=== PATIENT | male | born 1970 | race Caucasian/White ===

== ENCOUNTER 2018-07-14 09:32 | Emergency (ER) | payer OTHER ==
--- NOTE | 2018-07-14 10:46 | ER ---
Nurse's Notes [facility] Name: Jhony Clements Age: 48 yrs Sex: Male : 1970 Arrival Date: 07/14/2018 Time: 09:36 Bed 19 Private MD: None, None Diagnosis: Type 2 diabetes mellitus;Essential (primary) hypertension Presentation: 07/14 09:40 Presenting complaint: Patient states: "my left hand has been numb since last week and aa5 now my right hand is doing the same thing". Pt reports hx of HTN and diabetes, pt states "I took myself off the my medicines years ago but I think I need them now". 09:40 Onset of symptoms was June 2018. aa5 09:40 Acuity: LISA 3 aa5 09:40 Transition of care: patient was not received from another setting of care. aa5 09:40 Method Of Arrival: Ambulatory aa5 09:46 Risk Assessment: Do you want to hurt yourself or someone else? Patient reports no hj desire to harm self or others. Initial Sepsis Screen: Does the patient meet any 2 criteria? No. Patient's initial sepsis screen is negative. Does the patient have a suspected source of infection? No. Patient's initial sepsis screen is negative. Care prior to arrival: None. Triage Assessment: 09:45 General: Appears in no apparent distress. uncomfortable, Behavior is calm, cooperative, hj appropriate for age. Pain: Denies pain. Historical: - Allergies: 09:40 No Known Allergies; aa5 - PMHx: 09:40 Hypertension; Diabetes - NIDDM; aa5 - PSHx: 09:40 None; aa5 - Immunization history:: Adult Immunizations unknown. - Social history:: Smoking status: Smoking status: Patient/guardian denies using tobacco, Patient/guardian denies using alcohol. - Ebola Screening: : Patient negative for fever greater than or equal to 101.5 degrees Fahrenheit, and additional compatible Ebola Virus Disease symptoms Patient denies exposure to infectious person Patient denies travel to an Ebola-affected area in the 21 days before illness onset. - Family history:: not pertinent. Screenin:45 Abuse screen: Denies threats or abuse. Denies injuries from another. Nutritional hj screening: No deficits noted. Tuberculosis screening: No symptoms or risk factors identified. Fall Risk None identified. Assessment: 09:40 General: Appears in no apparent distress. uncomfortable, Behavior is calm, cooperative, hj appropriate for age. Pain: Denies pain. Neuro: Level of Consciousness is awake, alert, obeys commands, Oriented to person, place, time, situation, Appropriate for age. Cardiovascular: Capillary refill < 3 seconds Patient's skin is warm and dry. Respiratory: Airway is patent Respiratory effort is even, unlabored, Respiratory pattern is regular, symmetrical. GI: No signs and/or symptoms were reported involving the gastrointestinal system. : No signs and/or symptoms were reported regarding the genitourinary system. EENT: No signs and/or symptoms were reported regarding the EENT system. Derm: No signs and/or symptoms reported regarding the dermatologic system. Musculoskeletal: Reports numbness in palmar aspect of proximal phalanx of right little finger and palmar aspect of middle phalanx of right little finger and palmar aspect of distal phalanx of right little finger and dorsal aspect of proximal phalanx of right little finger and dorsal aspect of middle phalanx of right little finger and dorsal aspect of distal phalanx of right little finger and left hand. 10:00 Reassessment: Patient and/or family updated on plan of care and expected duration. Pain hj level reassessed. Patient is alert, oriented x 3, equal unlabored respirations, skin warm/dry/pink. awaiting provider'. 11:05 Reassessment: Patient and/or family updated on plan of care and expected duration. Pain hj level reassessed. Patient is alert, oriented x 3, equal unlabored respirations, skin warm/dry/pink. Patient states feeling better. Vital Signs: 09:42 BP 150 / 102; Pulse 103; Resp 18 S; Temp 98.2(O); Pulse Ox 96% on R/A; Weight 108.86 kg aa5 (R); Height 5 ft. 7 in. (170.18 cm) (R); Pain 0/10; 11:04 BP 153 / 99; Pulse 85; Resp 18; Pulse Ox 97% on R/A; hj 09:42 Body Mass Index 37.59 (108.86 kg, 170.18 cm) aa5 ED Course: 09:36 Patient arrived in ED. mr 09:36 None, None is Private Physician. mr 09:40 Arm band placed on Patient placed in an exam room, on a stretcher. aa5 09:41 Aldo Fry, RN is Primary Nurse. hj 09:45 Arm band placed on right wrist. hj 09:46 Adam Easley MD is Attending Physician. mindi 09:47 Triage completed. aa5 09:47 Patient has correct armband on for positive identification. Bed in low position. Call hj light in reach. Side rails up X 1. 10:42 Manuel Humphries MD is Referral Physician. mindi 10:54 Ted Mueller MD is Referral Physician. mindi 11:03 No provider procedures requiring assistance completed. Patient did not have IV access hj during this emergency room visit. Administered Medications: 10:40 Drug: Motrin 600 mg Route: PO; hj 11:06 Follow up: Response: No adverse reaction; Pain is decreased hj 10:40 Drug: metFORMIN 1000 mg Route: PO; hj 11:06 Follow up: Response: No adverse reaction hj 10:41 Drug: Lisinopril 10 mg Route: PO; hj 11:06 Follow up: Response: No adverse reaction hj Point of Care Testing: Blood Glucose: 10:31 Blood Glucose: 267 mg/dL; hj Ranges: Outcome: 10:45 Discharge ordered by . mindi 11:03 Discharged to home ambulatory. hj 11:03 Condition: stable 11:03 Discharge instructions given to patient, Instructed on discharge instructions, follow up and referral plans. medication usage, Demonstrated understanding of instructions, follow-up care, medications, Prescriptions given X 4. 11:07 Patient left the ED. Signatures: Adam Easley MD MD cha Rivera, Maria mr Calderon, Audri RN RN [facility] Aldo Fry RN RN
--- NOTE | 2018-07-14 10:46 | EDPHYS ---
Physician Documentation [facility] Name: Jhony Clements Age: 48 yrs Sex: Male : 1970 Arrival Date: 07/14/2018 Time: 09:36 Bed 19 Private MD: None, None ED Physician Adam Easley HPI: 07/14 10:37 This 48 yrs old Male presents to ER via Ambulatory with complaints of mindi Numbness Of Hand. 10:37 The patient or guardian reports. The complaints affect the DIP of left little finger, mindi PIP of left little finger, MCP of left little finger, DIP of left ring finger, PIP of left ring finger and MCP of left ring finger, DIP of right ring finger, PIP of right ring finger, MCP of right ring finger, DIP of right little finger, PIP of right little finger and MCP of right little finger. Context: The problem was sustained at an unknown location. Onset: The symptoms/episode began/occurred 1 week(s) ago. Modifying factors: The symptoms are alleviated by extending arms. Associated signs and symptoms: The patient has no apparent associated signs or symptoms. Severity of symptoms: At their worst the symptoms were mild, in the emergency department the symptoms. The patient has not experienced similar symptoms in the past. Historical: - Allergies: 09:40 No Known Allergies; aa5 - PMHx: 09:40 Hypertension; Diabetes - NIDDM; aa5 - PSHx: 09:40 None; aa5 - Immunization history:: Adult Immunizations unknown. - Social history:: Smoking status: Smoking status: Patient/guardian denies using tobacco, Patient/guardian denies using alcohol. - Ebola Screening: : Patient negative for fever greater than or equal to 101.5 degrees Fahrenheit, and additional compatible Ebola Virus Disease symptoms Patient denies exposure to infectious person Patient denies travel to an Ebola-affected area in the 21 days before illness onset. - Family history:: not pertinent. ROS: 10:37 Constitutional: Negative for fever, chills, and weight loss, Eyes: Negative for injury, mindi pain, redness, and discharge, ENT: Negative for injury, pain, and discharge, Neck: Negative for injury, pain, and swelling, Cardiovascular: Negative for chest pain, palpitations, and edema, Respiratory: Negative for shortness of breath, cough, wheezing, and pleuritic chest pain, Abdomen/GI: Negative for abdominal pain, nausea, vomiting, diarrhea, and constipation, Back: Negative for injury and pain, : Negative for injury, bleeding, discharge, and swelling, Skin: Negative for injury, rash, and discoloration, Psych: Negative for depression, anxiety, suicide ideation, homicidal ideation, and hallucinations, Allergy/Immunology: Negative for hives, rash, and allergies, Endocrine: Negative for neck swelling, polydipsia, polyuria, polyphagia, and marked weight changes, Hematologic/Lymphatic: Negative for swollen nodes, abnormal bleeding, and unusual bruising. 10:37 Skin: Positive for of the right hand and left hand. 10:37 Neuro: Positive for tingling, of the right hand and left hand. Exam: 10:37 Constitutional: This is a well developed, well nourished patient who is awake, alert, mindi and in no acute distress. Head/Face: Normocephalic, atraumatic. Eyes: Pupils equal round and reactive to light, extra-ocular motions intact. Lids and lashes normal. Conjunctiva and sclera are non-icteric and not injected. Cornea within normal limits. Periorbital areas with no swelling, redness, or edema. ENT: Nares patent. No nasal discharge, no septal abnormalities noted. Tympanic membranes are normal and external auditory canals are clear. Oropharynx with no redness, swelling, or masses, exudates, or evidence of obstruction, uvula midline. Mucous membranes moist. Neck: Trachea midline, no thyromegaly or masses palpated, and no cervical lymphadenopathy. Supple, full range of motion without nuchal rigidity, or vertebral point tenderness. No Meningismus. Chest/axilla: Normal chest wall appearance and motion. Nontender with no deformity. No lesions are appreciated. Cardiovascular: Regular rate and rhythm with a normal S1 and S2. No gallops, murmurs, or rubs. Normal PMI, no JVD. No pulse deficits. Respiratory: Lungs have equal breath sounds bilaterally, clear to auscultation and percussion. No rales, rhonchi or wheezes noted. No increased work of breathing, no retractions or nasal flaring. Abdomen/GI: Soft, non-tender, with normal bowel sounds. No distension or tympany. No guarding or rebound. No evidence of tenderness throughout. Back: No spinal tenderness. No costovertebral tenderness. Full range of motion. Skin: Warm, dry with normal turgor. Normal color with no rashes, no lesions, and no evidence of cellulitis. Neuro: Awake and alert, GCS 15, oriented to person, place, time, and situation. Cranial nerves II-XII grossly intact. Motor strength 5/5 in all extremities. Sensory grossly intact. Cerebellar exam normal. Normal gait. Psych: Awake, alert, with orientation to person, place and time. Behavior, mood, and affect are within normal limits. 10:37 Musculoskeletal/extremity: ROM: no acute changes, Circulation is intact in all extremities. Compartment Syndrome exam of affected extremity: the dorsal aspect of distal phalanx of right little finger, dorsal aspect of middle phalanx of right little finger, dorsal aspect of proximal phalanx of right little finger, palmar aspect of distal phalanx of right little finger, palmar aspect of middle phalanx of right little finger, palmar aspect of proximal phalanx of right little finger and left hand is normal. no pain, no tingling, no palor, no weak pulses, numbness, sensation decreased, DVT Exam: No signs of deep vein thrombosis. no pain, no swelling, no tenderness, negative Homans' sign noted on exam, no appreciated bluish discoloration, no erythema, no increased warmth. Vital Signs: 09:42 BP 150 / 102; Pulse 103; Resp 18 S; Temp 98.2(O); Pulse Ox 96% on R/A; Weight 108.86 kg aa5 (R); Height 5 ft. 7 in. (170.18 cm) (R); Pain 0/10; 11:04 BP 153 / 99; Pulse 85; Resp 18; Pulse Ox 97% on R/A; hj 09:42 Body Mass Index 37.59 (108.86 kg, 170.18 cm) aa5 MDM: 09:46 Patient medically screened. [facility] 10:42 Data reviewed: vital signs, nurses notes, lab test result(s). [facility] 07/14 11:00 Order name: Glucose, Ancillary Testing [facility]TX 07/14 10:32 Order name: Blood Glucose Level; Complete Time: 10:32 Administered Medications: 10:40 Drug: Motrin 600 mg Route: PO; 11:06 Follow up: Response: No adverse reaction; Pain is decreased 10:40 Drug: metFORMIN 1000 mg Route: PO; hj 11:06 Follow up: Response: No adverse reaction 10:41 Drug: Lisinopril 10 mg Route: PO; hj 11:06 Follow up: Response: No adverse reaction Point of Care Testing: Blood Glucose: 10:31 Blood Glucose: 267 mg/dL; hj Ranges: Critical Glucose Levels:Adult <50 mg/dl or >400 mg/dl <40 mg/dl or >180 mg/dl Disposition: 07/14/18 10:45 Discharged to Home. Impression: Type 2 diabetes mellitus, Essential (primary) hypertension. - Condition is Stable. - Discharge Instructions: Type 2 Diabetes Mellitus, Diagnosis, Adult, Hypertension, Peripheral Neuropathy, Hypertension, [id number], Diabetic Neuropathy, How to Take Your Blood Pressure, [id number], Aspirin and Your Heart, Type 2 Diabetes Mellitus, Diagnosis, Adult, [id number], Managing Your Hypertension, Ulnar Nerve Transposition. - Prescriptions for Lisinopril 5 mg Oral Tablet - take 1 tablet by ORAL route once daily; 20 tablet. Metformin 500 mg Oral Tablet Sustained Release 24 hr - take 1 tablet by ORAL route once daily with evening meal; 30 tablet. Ibuprofen 600 mg Oral Tablet - take 1 tablet by ORAL route every 8 hours As needed take with food; 21 tablet. Medrol (Oziel) 4 mg Oral Tablets, Dose Pack - take 1 tablet by ORAL route as directed - follow package instructions; 1 packet. - Medication Reconciliation Form, Thank You Letter, Antibiotic Education, Prescription Opioid Use form. - Follow up: Private Physician; When: 2 - 3 days; Reason: Recheck today's complaints, Continuance of care, Re-evaluation by your physician. Follow up: Manuel Humphries MD; When: 2 - 3 days; Reason: Recheck today's complaints, Re-evaluation by your physician. Follow up: Ted Mueller MD; When: 2 - 3 days; Reason: Recheck today's complaints, Re-evaluation by your physician. Signatures: Dispatcher [employer] Adam Kilpatrick MD MD cha Calderon, Audri RN RN aa5 Aldo Fry RN RN hj Corrections: (The following items were deleted from the chart) 10:55 10:45 07/14/2018 10:45 Discharged to Home. Impression: Type 2 diabetes mellitus; mindi Essential (primary) hypertension. Condition is Stable. Forms are Medication Reconciliation Form, Thank You Letter, Antibiotic Education, Prescription Opioid Use. Follow up: Private Physician; When: 2 - 3 days; Reason: Recheck today's complaints, Continuance of care, Re-evaluation by your physician. Follow up: Manuel Humphries; When: 2 - 3 days; Reason: Recheck today's complaints, Re-evaluation by your physician. mindi 11:07 10:55 07/14/2018 10:45 Discharged to Home. Impression: Type 2 diabetes mellitus; hj Essential (primary) hypertension. Condition is Stable. Discharge Instructions: Type 2 Diabetes Mellitus, Diagnosis, Adult, Hypertension, Hypertension, [id number], How to Take Your Blood Pressure, [id number], Aspirin and Your Heart, Type 2 Diabetes Mellitus, Diagnosis, Adult, [id number], Managing Your Hypertension. Prescriptions for Lisinopril 5 mg Oral Tablet - take 1 tablet by ORAL route once daily; 20 tablet, Metformin 500 mg Oral Tablet Sustained Release 24 hr - take 1 tablet by ORAL route once daily with evening meal; 30 tablet. and Forms are Medication Reconciliation Form, Thank You Letter, Antibiotic Education, Prescription Opioid Use. Follow up: Private Physician; When: 2 - 3 days; Reason: Recheck today's complaints, Continuance of care, Re-evaluation by your physician. Follow up: Manuel Humphries; When: 2 - 3 days; Reason: Recheck today's complaints, Re-evaluation by your physician. Follow up: Ted Mueller; When: 2 - 3 days; Reason: Recheck today's complaints, Re-evaluation by your physician. [facility]
[2018-07-14] MEDS ORDERED: METFORMIN HCL 500 MG TAB ONE (10:51)
[2018-07-14] MEDS ORDERED: IBUPROFEN 400 MG TAB ONE (10:51)
[2018-07-14] MEDS ORDERED: LISINOPRIL 10 MG TAB ONE (10:51)
[2018-07-14] MEDS ORDERED: IBUPROFEN 200 MG TAB PO ONE (10:54)
== END 2018-07-14 11:07 | disposition home or self-care (01) ==
LOC: ER 09:32
DX: I10 Essential (primary) hypertension (principal); E11.9 Type 2 diabetes mellitus without complications
CPT/HCPCS: 82962; 99283